=== PATIENT | female | born 1965 | race Caucasian/White ===

== ENCOUNTER → 2018-07-15 15:46 | Outpatient (CLI) | payer BC, SELFPAY ==
[2018-07-15 18:09] LABS: T4 Total, Thyroxin 10.2 ug/dL (4.8-13.9); Thyroid Stim Hormone (TSH) 1.63 uIU/mL (0.358-3.74)
[2018-07-22 15:59] LABS: HPV Reflexed? NOT INDICATED
== END ==
PROVIDERS: Family Provider Family Medicine; PCP Family Medicine; Visit Provider Family Medicine
DX: E03.9 Hypothyroidism, unspecified (principal); Z12.4 Encounter for screening for malignant neoplasm of cervix
CPT/HCPCS: 36415; 84436; 84443; 88175; G0145

== ENCOUNTER → 2019-06-03 14:24 | Outpatient (CLI) | payer BC, SELFPAY ==
[2017-06-27 08:17] VITALS: BMI 26.4
== END ==
PROVIDERS: Family Provider Family Medicine; PCP Family Medicine; Referring Provider Family Medicine; Visit Provider Family Medicine
DX: R19.7 Diarrhea, unspecified (principal)
CPT/HCPCS: 87177; 87209; 87506

== ENCOUNTER 2020-03-08 16:52 | Emergency (ER) | payer BC, SELFPAY ==
[2020-03-08 16:54] VITALS: BP 152/94; PULSE 111; RESP 16; TEMP 36.3; O2SAT 98; BMI 28.3
--- NOTE | 2020-03-08 17:03 | ED.VIS.GEN ---
History of Present Illness Chief Complaint: Upper Extremity Injury Informant: Patient Narrative: 4-year-old female with no past medical history presents with concern for left wrist pain. States that approximate 2 hours ago she was walking into the [email or web address] salon when she tripped on her sandal and fell into the door. Use her left hand to brace her fall. Denies any head trauma or loss of consciousness. Has sharp pain in the left wrist worse with movement. Denies numbness or tingling. Patient is not on anticoagulation. Past Medical History - Allergies and Home Meds Allergies/Adverse Reactions: Allergies No Known Allergies Allergy (Verified 06/27/17 08:23) Primary Care Physician: Erika Pritchard MD [Primary Care Provider] - Prior records reviewed: Yes Past Medical History: - - hypothyroidism Surgical History: no surgical history Lives: Spouse/ Significant Other Smoking Status: Unknown if ever smoked Alcohol: None Drugs: None Review of Systems General: Denies: Chills, Fever, Sweats Eyes: Denies: Visual changes - bilaterally, Diplopia ENT: Denies: Rhinorrhea, Sore throat Cardiovascular: Denies: Chest pain, Palpitations Respiratory: Denies: Dyspnea, Cough, Dyspnea on exertion Gastrointestinal: Denies: Abdominal pain, Nausea, Vomiting, Diarrhea, Melena, Hematochezia Genitourinary: Denies: Dysuria, Hematuria, Frequency Musculoskeletal: Reports: Arthralgias. Denies: Back pain, Extremity Pain Skin: Denies: Rash, Wounds Neurological: Denies: Headache, Weakness, Numbness Physical Exam Vital Signs/Narrative: Vital Signs Temp Pulse Resp BP Pulse Ox 03/08/20 16:54 97.3 F L 111 H 16 152/94 H 98 Inital Vital Signs reviewed: Yes General: Well nourished, Well developed, No Acute Distress Head: Normocephalic, Atraumatic Eyes: Perrl, EOMI ENT: Moist mucous membranes, No rhinorrhea Neck: Supple, Nontender Cardiovascular: Regular rate, Regular rhythm, No murmurs Respiratory: No distress, CTA bilaterally, Chest nontender Abdomen: Soft, Nontender, Nondistended, Normal bowel sounds Back: Nontender, Normal Inspection Extremities: Nontender, No edema, - - TTP in the left wrist over the lateral dorsum. Strong radial pulse. Sensation intact. Skin: Normal color, No rash Neurological: Alert, Oriented x3, Cranial nerves II-XII grossly intact, Normal Strength, Normal Sensation Psychological: Normal affect, Normal Mood Diagnostic/Tx/Re-eval Clinical Impression(s) from Imaging Studies Wrist X-Ray 03/08/20 17:06 IMPRESSION: Intra-articular nondisplaced fracture of the distal radius. Electronically Signed: Mao Lucero MD at 17:17 EDT Tel , Service support , - Medical Decision Making Appears well and nontoxic. No evidence of head injury. Patient has a left intra-articular distal radius fracture without significant displacement. Patient was given one Percocet for her pain. A volar splint was placed with Ortho-Glass. Patient tolerated procedure well. Will follow-up with Dr. Quesada. Asked to return for any new or worsening symptoms. Patient agreeable and discharged home in stable condition. Procedures - Upper Extremity Splints Upper Extremity Splint: Orthoglass, Volar Splint Fabrication: Pre-fabricated Location: Left ED Disposition - Plan for ED Patient: Disposition: Home or Assisted Living Diagnosis: Radius distal fracture, Fall Instructions: ED WRIST FRACTURE General Prescriptions: Oxycodone [Oxyir] 5 mg PO Q6H PRN PRN 2 Days #9 tablet PRN Reason: Pain Score 6-10/10 Transmission Status: Received by [facility]/pharmacy #[id number] Referrals: Erika Pritchard MD [Primary Care Provider] - Arthur Burnett DO [STAFF PHYSICIAN] -
--- NOTE | 2020-03-08 17:06 | RAD_ITS ---
STUDY: X-RAY - LEFT WRIST REASON FOR EXAM: Female, 54 years old. FALL, NOTICEABLE SWELLING ON TOP OF HAND AROUND THUMB TECHNIQUE: 3 view(s) of the wrist were obtained. COMPARISON: None. FINDINGS: Intra-articular nondisplaced fracture of the distal radius. Normal radiocarpal articulation. Normal distal radioulnar articulation. Normal carpal bones. Normal carpal articulations. Normal carpometacarpal articulation of the thumb. Normal second through fifth carpometacarpal articulations. Normal visualized metacarpal bones. Soft tissue swelling. RAD/Wrist min 3 Views IMPRESSION: Intra-articular nondisplaced fracture of the distal radius. Electronically Signed: Mao Lucero MD at 17:17 EDT Tel , Service support ,
[2020-03-08] MEDS: oxyCODONE 5 MG Tablet PO (17:14)
== END 2020-03-08 18:22 | disposition home or self-care (01) ==
PROVIDERS: Emergency Provider Emergency Medicine; PCP Family Medicine
DX: S52.572A Other intraarticular fracture of lower end of left radius, initial encounter for closed fracture (principal); W01.10XA Fall on same level from slipping, tripping and stumbling with subsequent striking against unspecified object, initial encounter; Y93.01 Activity, walking, marching and hiking; Y92.89 Other specified places as the place of occurrence of the external cause; Y99.9 Unspecified external cause status; E03.9 Hypothyroidism, unspecified; Z79.899 Other long term (current) drug therapy
CPT/HCPCS: 29125; 73110; 99283

== ENCOUNTER → 2020-03-15 10:51 | Outpatient (CLI) | payer BC, SELFPAY ==
[2020-03-10 11:52] VITALS: BMI 28.3
--- NOTE | 2020-03-15 10:52 | RAD_ITS ---
STUDY: X-RAY - LEFT WRIST REASON FOR EXAM: Fracture follow-up. TECHNIQUE: 3 view(s) of the wrist were obtained. COMPARISON: Radiographs 03/08/2020. FINDINGS: There is no interval change of the nondisplaced fracture of the distal radius. Normal radiocarpal articulation. Normal distal radioulnar articulation. Normal carpal bones. There is mild joint space narrowing of the triscaphe articulation. Normal carpometacarpal articulation of the thumb. Normal second through fifth carpometacarpal articulations. Normal visualized metacarpal bones. There is an overlying cast. RAD/Wrist min 3 Views IMPRESSION: No interval change of distal radial fracture. Electronically Signed: Nicholas Bermudez MD at 11:26 EDT Tel , Service support ,
== END ==
LOC: HPRAD 10:52
PROVIDERS: PCP Family Medicine; Referring Provider Orthopaedic Surgery; Visit Provider Orthopaedic Surgery
DX: S52.502A Unspecified fracture of the lower end of left radius, initial encounter for closed fracture (principal); X58.XXXA Exposure to other specified factors, initial encounter; Y93.9 Activity, unspecified; Y92.9 Unspecified place or not applicable; Y99.9 Unspecified external cause status
CPT/HCPCS: 73110

== ENCOUNTER → 2020-03-22 09:18 | Outpatient (CLI) | payer BC, SELFPAY ==
[2020-03-15 11:06] VITALS: BMI 28.3
--- NOTE | 2020-03-22 09:19 | RAD_ITS ---
STUDY: X-RAY - LEFT WRIST REASON FOR EXAM: Female, 54 years old. FRACTURE TECHNIQUE: 3 view(s) of the wrist were obtained. COMPARISON: 03/15/2020 FINDINGS: Since the previous study, the fiberglass cast surrounding the distal forearm and wrist has been removed. Previous described osteochondral fracture in the distal radius is unchanged in appearance from the previous study, no significant healing has occurred. Persistent cortical irregularity and fracture lucency noted. Continued follow-up recommended to assure osseous union. Normal visualized distal ulna. Normal radiocarpal articulation. Normal distal radioulnar articulation. Normal carpal bones. Normal carpal articulations. Normal carpometacarpal articulation of the thumb. Normal second through fifth carpometacarpal articulations. Normal visualized metacarpal bones. The soft tissue structures are unremarkable. RAD/Wrist min 3 Views IMPRESSION: Little significant healing has occurred in the previous seen noted osteochondral fracture in the distal radius. Continued follow-up recommended to assure osseous union. Alignment and positioning are unchanged. No new acute fracture or suspicious osseous lesion Electronically Signed: Nik Still MD at 9:47 EDT , Service support ,
== END ==
LOC: HPRAD 09:19
PROVIDERS: PCP Family Medicine; Referring Provider Orthopaedic Surgery; Visit Provider Orthopaedic Surgery
DX: S52.502A Unspecified fracture of the lower end of left radius, initial encounter for closed fracture (principal); X58.XXXA Exposure to other specified factors, initial encounter; Y93.9 Activity, unspecified; Y92.9 Unspecified place or not applicable; Y99.9 Unspecified external cause status
CPT/HCPCS: 73110

== ENCOUNTER → 2020-04-03 10:34 | Outpatient (CLI) | payer BC, SELFPAY ==
[2020-04-03 10:26] VITALS: BMI 28.3
--- NOTE | 2020-04-03 10:35 | RAD_ITS ---
STUDY: X-RAY - LEFT WRIST REASON FOR EXAM: Female, 55 years old. FRACTURE TECHNIQUE: 3 view(s) of the wrist were obtained. COMPARISON: Comparison is made with prior examination dated 03/22/2020. FINDINGS: There is evidence of a healing fracture through the distal radial metaphysis. The alignment is unchanged. Normal radiocarpal articulation. Normal distal radioulnar articulation. Normal carpal bones. Normal carpal articulations. Normal carpometacarpal articulation of the thumb. Normal second through fifth carpometacarpal articulations. Normal visualized metacarpal bones. Soft tissue swelling. RAD/Wrist min 3 Views IMPRESSION: Healing nondisplaced fracture of the distal radial metaphysis with persistent soft tissue swelling. Electronically Signed: Parveen Morelos, at 10:17 EDT , Service support ,
== END ==
LOC: HPRAD 10:35
PROVIDERS: PCP Family Medicine; Referring Provider Orthopaedic Surgery; Visit Provider Orthopaedic Surgery
DX: S52.592D Other fractures of lower end of left radius, subsequent encounter for closed fracture with routine healing (principal); X58.XXXD Exposure to other specified factors, subsequent encounter
CPT/HCPCS: 73110

== ENCOUNTER → 2020-04-17 10:17 | Outpatient (CLI) | payer BC, SELFPAY ==
[2020-04-17 07:49] VITALS: BMI 28.3
--- NOTE | 2020-04-17 10:19 | RAD_ITS ---
STUDY: X-RAY - LEFT WRIST REASON FOR EXAM: Female, 55 years old. F/U LEFT WRIST FX. INJURED ON MARCH 08/2020 TECHNIQUE: 3 view(s) of the wrist were obtained. COMPARISON: 04/03/2020 FINDINGS: Healing nondisplaced transverse fracture the distal metaphysis of the radius with sclerosis and bony bridging. Normal radiocarpal articulation. Normal distal radioulnar articulation. Normal carpal bones. Normal carpal articulations. Normal carpometacarpal articulation of the thumb. Normal second through fifth carpometacarpal articulations. Normal visualized metacarpal bones. The soft tissue structures are unremarkable. RAD/Wrist min 3 Views IMPRESSION: Healing nondisplaced transverse fracture the distal metaphysis of the radius. Electronically Signed: Himanshu Luis MD at 10:32 EDT Tel , Service support ,
== END ==
PROVIDERS: PCP Family Medicine; Referring Provider Orthopaedic Surgery; Visit Provider Orthopaedic Surgery
DX: S52.572D Other intraarticular fracture of lower end of left radius, subsequent encounter for closed fracture with routine healing (principal); X58.XXXD Exposure to other specified factors, subsequent encounter
CPT/HCPCS: 73110

== ENCOUNTER → 2020-09-13 15:09 | Outpatient (CLI) | payer BC, SELFPAY ==
[2020-05-01 09:26] VITALS: BMI 28.3
[2020-09-13 18:16] LABS: Absolute Lymphocyte Count 2.84 X10^3/uL (0.83-4.51); Absolute Neutrophil Count 6.1 X10^3/uL (2.0-7.7); Basophil# 0.08 X10^3/uL; Basophil% 0.8 % (0-1); Eosinophil# 0.12 X10^3/uL; Eosinophils% 1.2 % (0-5); Hematocrit 41.1 % (37-47); Hemoglobin 12.9 g/dL (12.0-15.0); Lymphocyte # 2.84 X10^3/ul (4.0); Lymphocyte % 28.3 % (19-41); Mean Corp Hgb Conc 31.4 g/dL (32-36); Mean Corpuscular Hgb 29.9 pg (27.0-32.0); Mean Corpuscular Volume 95.4 fL (81-99); Mean Platelet Vol. 10.3 fl (6.2-12.0); Monocyte# 0.88 X10^3/uL; Monocyte% 8.8 % (0-10); NRBC Flagged by Analyzer 0 % (0-5); Neutrophil # 6.08 X10^3/uL (2.7-7.7); Neutrophil % 60.6 % (47-70); Platelet Count 308 K/mm3 (150-450); RBC Distribution Width CV 12.8 % (11.6-14.6); RBC Distribution Width SD 45.2 fl (35.1-43.9); Red Blood Count 4.31 M/mm3 (4.2-5.4)
[2020-09-13 18:50] LABS: ALB/GLOB Ratio 1.2 RATIO (0.9-2.4); AST(SGOT) 12 U/L (15-37); Alanine Aminotransfer ALT/SGPT 19 U/L (13-56); Albumin, Serum 3.5 g/dL (3.2-5.0); Alkaline Phosphatase 70 U/L (45-117); Anion Gap 4 (5-15); BUN 12 mg/dL (7-18); BUN/Creat Ratio 16.9 RATIO (10-20); Calcium,Total 8.6 mg/dL (8.5-10.1); Chloride 108 mmol/L (98-107); Creatinine, Serum 0.71 mg/dL (0.55-1.02); EST Glomerular Filtration Rate 91 mL/min (>60); Est Glom Filt Rate - Afr Amer 110 mL/min (>60); Free T3 2.1 pg/mL (2.18-3.98); Glucose 88 mg/dL (74-106); Potassium 4.3 mmol/L (3.5-5.1); Protein, Total 6.5 g/dL (6.4-8.2); Sodium Level 138 mmol/L (136-145); T4 Total, Thyroxin 8.7 ug/dL (4.8-13.9); Thyroid Stim Hormone (TSH) 4.23 uIU/mL (0.358-3.74)
== END ==
PROVIDERS: PCP Family Medicine; Referring Provider Family Medicine; Visit Provider Family Medicine
DX: E03.9 Hypothyroidism, unspecified (principal); R53.81 Other malaise; R53.83 Other fatigue
CPT/HCPCS: 36415; 80053; 84436; 84443; 84481; 85025

== ENCOUNTER → 2020-12-04 15:22 | Outpatient (CLI) | payer BC, SELFPAY ==
[2020-05-01 09:26] VITALS: BMI 28.3
[2020-12-04 18:04] LABS: T4 Total, Thyroxin 10.3 ug/dL (4.8-13.9); Thyroid Stim Hormone (TSH) 0.64 uIU/mL (0.358-3.74)
== END ==
PROVIDERS: PCP Family Medicine; Visit Provider Family Medicine
DX: E03.9 Hypothyroidism, unspecified (principal)
CPT/HCPCS: 36415; 84436; 84443

== ENCOUNTER → 2021-01-22 15:39 | Outpatient (CLI) | payer BC, SELFPAY ==
[2020-05-01 09:26] VITALS: BMI 28.3
[2021-01-22 18:55] LABS: T4 Total, Thyroxin 10.7 ug/dL (4.8-13.9); Thyroid Stim Hormone (TSH) 0.31 uIU/mL (0.358-3.74)
[2021-01-25 17:54] LABS: HPV Reflexed? NOT INDICATED
== END ==
PROVIDERS: PCP Family Medicine; Visit Provider Family Medicine
DX: Z01.419 Encounter for gynecological examination (general) (routine) without abnormal findings (principal); E03.9 Hypothyroidism, unspecified
CPT/HCPCS: 36415; 84436; 84443; 88175; G0145

== ENCOUNTER → 2021-02-28 14:45 | Outpatient (CLI) | payer BC, SELFPAY ==
[2020-05-01 09:26] VITALS: BMI 28.3
--- NOTE | 2021-02-28 14:48 | BI_ITS ---
MAMMOGRAPHY - BILATERAL SCREENING REASON FOR EXAM: Female, 55 years old. Routine annual screening examination. PERTINENT HISTORY: Non-contributory. TECHNIQUE: Digital bilateral breast romario (3D mammographic acquisition) in the CC and MLO projections. 2-D mediolateral oblique (MLO) and craniocaudad (CC) views of both breasts were obtained. CAD: Full Field Digital Mammography with Computer Added Detection was performed. COMPARISON: None. Baseline examination. FINDINGS: Breast Composition: The breasts are heterogeneously dense, which may obscure small masses. There are no dominant masses or suspicious calcifications. There is a 7.1 mm x 8 mm well-defined nodule in the upper outer quadrant of the right breast. Correlation with function is recommended. No other significant abnormalities are identified. BI/SCREENING MAMM (CAD), BILAT IMPRESSION: 7.1 mm x 8 mm well-defined nodule in the upper-outer quadrant of the right breast. Correlation with ultrasound is recommended. ASSESSMENT CATEGORY: BIRADS Category 0: Incomplete. Need additional imaging evaluation. A letter regarding these results will be sent to the patient by the facility within 30 days. Approximately 10% of breast cancers are not detected by mammography. A normal mammogram should not delay biopsy of a clinically suspicious abnormality. [id number] Electronically Signed: Parveen Morelos MD at 15:42 EDT , Service support ,
== END ==
PROVIDERS: PCP Family Medicine; Referring Provider Family Medicine; Visit Provider Family Medicine
DX: Z12.31 Encounter for screening mammogram for malignant neoplasm of breast (principal); N63.11 Unspecified lump in the right breast, upper outer quadrant
CPT/HCPCS: 77067

== ENCOUNTER → 2021-03-02 09:25 | Outpatient (CLI) | payer BC, SELFPAY ==
[2020-05-01 09:26] VITALS: BMI 28.3
--- NOTE | 2021-03-02 09:26 | US_ITS ---
STUDY: ULTRASOUND BREAST - RIGHT REASON FOR EXAM: Female, 55 years old. Abnormal screening mammogram. TECHNIQUE: Axial and longitudinal images of the RIGHT breast were performed with a high resolution ultrasound transducer. # OF IMAGES: 11 COMPARISON: Comparison is made with prior mammogram dated 02/28/2021. FINDINGS: RIGHT Breast: The mammographic abnormality corresponds to an 8 mm x 7 mm x 4 mm cyst at the 10 o''clock position of the breast at 7 cm from the nipple. US/Breast Limited Unilateral IMPRESSION: 8 mm x 7 mm x 4 mm cyst is seen at the 10 o''clock position of the breast at 7 cm from the nipple. ASSESSMENT CATEGORY: BIRADS Category 2: Benign. A letter regarding these results will be sent to the patient by the facility within 30 days. Electronically Signed: Parveen Morelos MD at 10:40 EDT , Service support ,
== END ==
PROVIDERS: PCP Family Medicine; Referring Provider Family Medicine; Visit Provider Family Medicine
DX: R92.8 Other abnormal and inconclusive findings on diagnostic imaging of breast (principal); N60.01 Solitary cyst of right breast
CPT/HCPCS: 76642

== ENCOUNTER → 2022-05-17 | Outpatient (CLI) | payer BC, SELFPAY ==
[2022-05-17 18:13] LABS: Anion Gap 6 (5-15); BUN 15 mg/dL (7-18); BUN/Creat Ratio 21.2 RATIO (10-20); Calcium,Total 9.1 mg/dL (8.5-10.1); Chloride 109 mmol/L (98-107); Cholesterol 208 mg/dL (200); Creatinine, Serum 0.71 mg/dL (0.55-1.02); EST Glomerular Filtration Rate 91 mL/min (>60); Est Glom Filt Rate - Afr Amer 110 mL/min (>60); Glucose 83 mg/dL (74-106); High Density Lipoprotein 44 mg/dL; Potassium 3.9 mmol/L (3.5-5.1); Sodium Level 140 mmol/L (136-145); T4 Total, Thyroxin 10.4 ug/dL (4.8-13.9); Thyroid Stim Hormone (TSH) 0.72 uIU/mL (0.358-3.74); Triglycerides 128 mg/dL; Very Low Density Lipoprotein 26 mg/dL (5-40)
== END | disposition home or self-care (01) ==
LOC: MFPLAB 15:23
PROVIDERS: PCP Family Medicine; Referring Provider Family Medicine; Visit Provider Family Medicine
DX: Z00.00 Encounter for general adult medical examination without abnormal findings (principal); E03.9 Hypothyroidism, unspecified
CPT/HCPCS: 36415; 80048; 80061; 84436; 84443

== ENCOUNTER → 2023-01-07 | Outpatient (CLI) | payer BC, SELFPAY ==
--- NOTE | 2023-01-07 15:48 | RAD_ITS ---
EXAM: XR LEFT HIP WITH PELVIS WHEN PERFORMED, 2 OR 3 VIEWS CLINICAL INDICATION: None provided. pain TECHNIQUE: Two or three views of the left hip with pelvis when performed. COMPARISON: No relevant prior studies available. FINDINGS: BONES/JOINTS: Unremarkable. No displaced fracture. No destructive or sclerotic lesions. Note that overlapping bowel shadows may however obscure fine detail. Sacroiliac joint is unremarkable. No widening of the pubic symphysis. The articular structures are unremarkable. SOFT TISSUES: Unremarkable. No soft tissue swelling or gas. RAD/HIP, UNI W/ Pelvis 2-3 Views IMPRESSION: No evidence of displaced acute pelvic or hip fracture. Small curvilinear ossific density medial to the left femur near the lesser trochanter and another ossific density near the inferior left acetabulum both appear likely chronic. Electronically Signed: Jesica Palencia MD at 9:23 EDT ,
== END | disposition home or self-care (01) ==
LOC: MTRAD 15:47
PROVIDERS: PCP Family Medicine; Referring Provider Family Medicine; Visit Provider Family Medicine
DX: M25.552 Pain in left hip (principal)
CPT/HCPCS: 73502

== ENCOUNTER → 2023-01-23 | Outpatient (CLI) | payer BC, SELFPAY ==
--- NOTE | 2023-01-23 16:37 | MRI_ITS ---
EXAM: MR LEFT LOWER EXTREMITY WITHOUT AND WITH INTRAVENOUS CONTRAST, FEMUR CLINICAL INDICATION: LEFT LEG PAIN, ABNORMAL FINDING ON DIAGNOSTIC IMAGING TECHNIQUE: Multiplanar and multisequence MR images of the left femur without and with intravenous contrast. CONTRAST: 15ML IV CLARISCAN COMPARISON: No relevant prior studies available. FINDINGS: BONES/JOINTS: Unremarkable. No fracture. No joint effusion. No concerning bone marrow signal alterations. MUSCLES: Unremarkable. No edema or myositis. Tendons are unremarkable. OTHER SOFT TISSUES: Left greater than right trochanteric bursitis. OTHER FINDINGS: No adnexal masses or free fluid in the pelvis. MRI/Lower Ext No Joint W/WO Cont IMPRESSION: Left greater than right trochanteric bursitis. Electronically Signed: Brian Rosen MD at 23:00 EDT ,
== END | disposition home or self-care (01) ==
PROVIDERS: PCP Family Medicine; Referring Provider Student in an Organized Health Care Education/Training Program; Visit Provider Student in an Organized Health Care Education/Training Program
DX: M79.605 Pain in left leg (principal); R93.6 Abnormal findings on diagnostic imaging of limbs
CPT/HCPCS: 73720; A9575

== ENCOUNTER → 2023-02-08 | Outpatient (CLI) | payer BC, SELFPAY ==
--- NOTE | 2023-02-08 09:52 | MRI_ITS ---
HISTORY: Radiculopathy, pain in left hip, knee, and leg. TECHNIQUE: Multiplanar and multisequence MR images of the lumbar spine were obtained without intravenous contrast. 120 images. COMPARISON: None. FINDINGS: VERTEBRAE: Mild chronic loss of height of the T11 vertebral body with small Schmorl''s nodes. Degenerative bone marrow endplate changes at multiple levels particularly L1-2. ALIGNMENT: 2 mm retrolisthesis of L1-2. CONUS: Normal morphology and position of the conus medullaris at T12/L1. INTERVERTEBRAL DISCS: T12-L1: No significant posterior disc protrusion, central canal stenosis, or foraminal narrowing based on the sagittal images. L1-2: Moderate posterior disc bulge osteophyte complex with facet arthropathy resulting in mild central canal stenosis and bilateral foraminal narrowing L2-3: Mild posterior disc bulge osteophyte complex with facet arthropathy resulting in minimal narrowing of the thecal sac and mild bilateral foraminal narrowing. L3-4, L4-5: Minimal disc bulges and facet arthropathy without significant central canal stenosis or foraminal narrowing. L5-S1: Mild posterior disc protrusion with facet arthropathy resulting in minimal narrowing of the thecal sac and mild left foraminal narrowing. SOFT TISSUES: Mild posterior subcutaneous cutaneous edema. MRI/Spine Lumbar (Routine) IMPRESSION: Mild degenerative disc disease of the lumbar spine as above. Electronically Signed: Catherine Connolly MD at 12:17 EDT ,
== END | disposition home or self-care (01) ==
LOC: MRI 09:28
PROVIDERS: PCP Family Medicine; Referring Provider Student in an Organized Health Care Education/Training Program; Visit Provider Student in an Organized Health Care Education/Training Program
DX: M54.16 Radiculopathy, lumbar region (principal)
CPT/HCPCS: 72148

== ENCOUNTER → 2023-04-21 | Outpatient (CLI) | payer BC, SELFPAY ==
[2023-04-21 21:10] LABS: Hepatitis B Surface Antibody Non-Reactive
[2023-04-23 08:12] LABS: HEPATITIS B SURFACE AG Negative (Negative); Hep C Antibodies Non Reactive (Non Reactive); Hepatitis A AB, Total Negative (Negative); Hepatitis A IgM Antibody Negative (Negative); Hepatitis B Core AB IgM Negative (Negative)
== END | disposition home or self-care (01) ==
PROVIDERS: PCP Family Medicine; Referring Provider Physician Assistant; Visit Provider Physician Assistant
DX: L30.9 Dermatitis, unspecified (principal); F17.200 Nicotine dependence, unspecified, uncomplicated
CPT/HCPCS: 36415; 80074; 86706; 86708

== ENCOUNTER 2023-06-27 15:56 | Outpatient (CLI) | payer BC, SELFPAY ==
[2023-06-27 18:12] LABS: T4 Total, Thyroxin 9.7 ug/dL (4.8-13.9); Thyroid Stim Hormone (TSH) 1.49 uIU/mL (0.358-3.74)
== END 2023-06-27 23:59 | disposition home or self-care (01) ==
LOC: MFPLAB 15:57
PROVIDERS: PCP Family Medicine; Visit Provider Family Medicine
DX: Z00.00 Encounter for general adult medical examination without abnormal findings (principal)
CPT/HCPCS: 36415; 84436; 84443

== ENCOUNTER 2023-06-28 17:18 | Emergency (ER) | payer BC, SELFPAY ==
[2023-06-28 17:19] VITALS: BP 192/94; PULSE 75; RESP 14; TEMP 36.2; O2SAT 100; BMI 28.3
--- NOTE | 2023-06-28 17:31 | CT_ITS ---
INDICATION: headache, htn EXAMINATION: CT BRAIN - CT Head or Brain W/O Contrast Injection TECHNIQUE: Multiple axial images were obtained of the head without intravenous contrast. A radiation dose optimization technique was used for this scan. IV Contrast dosage and agent: None. COMPARISON: None FINDINGS: BRAIN PARENCHYMA: No intra- or extra-axial hemorrhage. No evidence of acute infarct. No intracranial mass or mass effect. There is preservation of the [place]/white matter interface. Posterior fossa structures are unremarkable. CSF SPACES: Appropriate for age. No hydrocephalus. Basal cisterns are patent. CALVARIUM, SKULL BASE, PARANASAL SINUSES AND MASTOID AIR CELLS: Mild frontal sinus mucosal thickening. No discrete lytic or blastic abnormalities. ORBITS: Both globes, extraocular muscles, optic nerves and retrobulbar fat appear unremarkable. CT/Brain/Head without Contrast IMPRESSION: No acute intracranial hemorrhage or fracture. Electronically Signed: Miki Sahu MD at 18:22 EDT ,
--- NOTE | 2023-06-28 17:31 | EX.ED.DYSGE1 ---
HPI History of Present Illness Chief Complaint: Hypertension Detail of Chief Complaint: Hypotension, headache Informant: patient Narrative Narrative: Patient presents to the emergency department with complaint of elevated blood pressure. Patient states that she had a general checkup with her primary care physician yesterday and had blood pressures of 160/100. No medication was started. Patient also describes headaches for about 2 weeks. Patient also for the last 3 days has been having some burning sensation in her chest. She denies recent illness. Patient denies shortness of breath. Denies any new medications. She has history of hypothyroidism. [facility] Medical History (Updated 06/28/23 @ 19:[address] Sheron Rosales DO) history of leg surgery Hypothyroidism Home Medications levothyroxine 50 mcg tablet 50 mcg PO DAILY 06/27/17 [History Last Taken Unknown] ascorbic acid (vitamin C) 500 mg capsule mg PO 05/01/20 [History Last Taken Unknown] lisinopril 10 mg tablet 10 mg PO DAILY #30 tabs 06/28/23 [Rx Last Taken Unknown] Allergy/AdvReac Type Severity Reaction Status Date / Time No Known Allergies Allergy Verified 06/28/23 17:21 Social History (Updated 05/01/20 @ 10:[address] Arthur Burnett DO) Smoking Status: Current every day smoker tobacco type: cigarettes alcohol intake: current details: Social drinker ROS ROS ED Review of Systems ROS Unobtainable: other Constitutional Constitutional ED: Reports lethargy; Denies chills, fever(s), sweats or weight loss Eyes Eyes: Denies blurry vision, change in vision or diplopia ENT ENT ED: Denies rhinorrhea or sore throat Cardiovascular Cardiovascular: Reports chest pain; Denies orthopnea or racing heartbeat Respiratory/Chest Respiratory/Chest: Denies cough, dyspnea, dyspnea on exertion, orthopnea or sputum Gastrointestinal Gastrointestinal: Denies abdominal pain, diarrhea, nausea or vomiting Genitourinary Genitourinary ED: Denies dysuria, hematuria or urinary frequency Musculoskeletal Musculoskeletal: Denies arthralgias, back pain, myalgias or neck pain Integumentary Denies abscess, Abrasions or rash Neurologic Neurologic: Reports headache(s); Denies weakness Psychiatric Psychiatric: Denies anxiety, depression or suicidal thoughts Endocrine Endocrinology: Denies polydipsia, polyphagia or polyuria Hematologic/Lymphatic Hematologic/Lymphatic: Denies easy bleeding, easy bruising or lymphadenopathy Allergic/Immunologic Allergic/Immunologic ED: Denies mouth swelling, tongue swelling or urticaria EXAM Physical Exam Const Vital Signs: 06/28/23 17:19 06/28/23 17:28 06/28/23 18:47 Temperature 97.2 F L Temperature Source Temporal Pulse Rate 75 78 Respiratory Rate 14 18 Respiratory Effort Normal Non-Labored Blood Pressure 192/94 H 135/89 H Blood Pressure Mean 126 104 Pulse Ox 100 98 Oxygen Delivery Method Room Air Room Air Positive well nourished and well developed General Appearance ED: well developed and NAD HEENT Reports TM's clear and moist mucous membranes normocephalic and atraumatic; Negative for trauma or tenderness Tympanic Membrane ED: Yes TM's clear Eyes PERRL and EOMs intact bilaterally General Eye ED: Negative for pale conjunctiva or scleral icterus Neck no lymphadenopathy, supple and no JVD General: Negative for tenderness Chest Wall inspection of chest normal and palpation of chest normal Chest: Negative for tenderness Resp normal respiratory effort and clear to auscultation bilaterally Effort and Inspection: Negative for respiratory distress or pain with movement Auscultation: Negative for rhonchi, wheezes or diminished lung sounds Cardio regular rate, regular rhythm, S1 normal heart sound, S2 normal heart sound and no murmurs Peripheral Pulses: pulses 2+ throughout GI normal to inspection, nondistended, normoactive bowel sounds, soft to palpation, non-tender, non-distended and no masses Back/Spine no CVA tenderness and no thoracic nor lumbar tenderness Extremity normal to inspection General Extremety ED: Negative for edema General Extremity: Negative for edema Neuro oriented x3, CN's II-XII intact bilaterally, no sensory deficits noted and gait normal Sensorium / Orientation: awake, alert, oriented to person, oriented to place and oriented to time Motor Exam: strength 5/5 throughout and strength abnormal Psych mental status grossly normal Skin no rashes or lesions noted and no wounds MDM MDM MDM Narrative Medical decision making narrative: Patient presents with elevated blood pressures. Patient initially noted elevated BPs in primary care physician's office yesterday. Has had headaches for about 3 weeks. She has had some burning in her chest that she thought maybe was heartburn. Patient has history of hypothyroidism. Patient not on blood pressure medications. I will establish on arrival. EKG obtained showed a sinus rhythm with a rate of 70 bpm with no acute ST segment changes. CBC with differential was normal. Chemistries normal. Troponin normal. Urine was normal. CT scan of the brain without contrast was unremarkable. Patient was given hydralazine 10 mg in the emergency department and her blood pressure improved and to the 130s to 150 systolic down to the 80s diastolic. I discussed case with Dr. Castillo who is on-call for Dr. Pritchard who recommended that we start patient on lisinopril and have her follow-up with the office this week. Patient comfortable with plan. She was started on lisinopril 10 mg daily. Patient advised to return if lip or tongue swelling, difficulty breathing, or condition worsening way. Lab Data Attestation: I reviewed the patient's lab results. Labs: Laboratory Results - last 24 hr 06/28/23 06/28/23 17:38 17:55 WBC 8.9 RBC 4.70 Hgb 14.2 Hct 44.3 MCV 94.3 MCH 30.2 MCHC 32.1 RDW Std Deviation 42.3 RDW Coeff of Henrry 12.1 Plt Count 298 MPV 9.8 Immature Gran % (Auto) 0.200 Neut % (Auto) 50.6 Lymph % (Auto) 36.6 [place] % (Auto) 9.9 Eos % (Auto) 2.0 Baso % (Auto) 0.7 Absolute Neuts (auto) 4.5 Absolute Lymphs (auto) 3.27 Nucleated RBC % 0 Sodium 141 Potassium 3.8 Chloride 108 H Carbon Dioxide 27.0 Anion Gap 6 BUN 16 Creatinine 0.79 Estim Creat Clear Calc 64.99 Est GFR (MDRD) Af Amer 97 Est GFR (MDRD) Non-Af 80 BUN/Creatinine Ratio 20.3 H Glucose 112 H Calcium 8.9 Troponin I High Sens 7 Urine Color Yellow Urine Clarity Clear Urine pH 6.0 Ur Specific [place] 1.015 Urine Protein Negative Urine Glucose (UA) Normal Urine Ketones Negative Urine Occult Blood Negative Urine Nitrite Negative Urine Bilirubin Negative Urine Urobilinogen Normal Ur Leukocyte Esterase 25 H Urine RBC 0 SEEN Urine WBC 0-5 SEEN Ur Squamous Epith Cells 5-10 SEEN Urine Bacteria 0 SEEN Urine Mucus 0 SEEN Radiography Diagnostic Testing: Clinical Impression(s) from Imaging Studies Brain CT 06/28/23 17:31 IMPRESSION: No acute intracranial hemorrhage or fracture. Electronically Signed: Miki Sahu MD at 18:22 EDT , EKG Initial EKG: Attestation: I personally reviewed and interpreted this EKG as follows: Comments: Sinus rhythm with a rate of 78 bpm with no acute ST segment changes Discharge Plan Triage Chief Complaint: Hypertension ED Provider: Sheron Rosales Dx/Rx/DC Orders Clinical Impression: Hypertension Instructions: ED Hypertension New Begin Treatment Prescriptions: New lisinopril 10 mg tablet 10 mg PO DAILY Qty: 30 0RF No Action ascorbic acid (vitamin C) 500 mg capsule PO levothyroxine 50 MCG tablet 50 mcg PO DAILY Primary Care Provider: Erika Pritchard Referrals: Erika Pritchard MD [Primary Care Provider] - 3-5 Days Disposition Disposition: Home, Self Care
[2023-06-28 17:54] LABS: Absolute Lymphocyte Count 3.27 X10^3/uL (0.83-4.51); Absolute Neutrophil Count 4.5 X10^3/uL (2.0-7.7); Basophil# 0.06 X10^3/uL; Basophil% 0.7 % (0-1); Eosinophil# 0.18 X10^3/uL; Hematocrit 44.3 % (37-47); Hemoglobin 14.2 g/dL (12.0-15.0); Lymphocyte # 3.27 X10^3/ul (0.83-4.51); Lymphocyte % 36.6 % (19-41); Mean Corp Hgb Conc 32.1 g/dL (32-36); Mean Corpuscular Hgb 30.2 pg (27.0-32.0); Mean Corpuscular Volume 94.3 fL (81-99); Mean Platelet Vol. 9.8 fl (6.2-12.0); Monocyte# 0.88 X10^3/uL; Monocyte% 9.9 % (0-10); NRBC Flagged by Analyzer 0 % (0-5); Neutrophil # 4.52 X10^3/uL (2.7-7.7); Neutrophil % 50.6 % (47-70); Platelet Count 298 K/mm3 (150-450); RBC Distribution Width CV 12.1 % (11.6-14.6); RBC Distribution Width SD 42.3 fl (35.1-43.9); White Blood Count 8.9 K/mm3 (4.4-11.0)
[2023-06-28 18:02] LABS: Bacteria 0 SEEN /hpf (None Seen); Mucous, Urine 0 SEEN /hpf (<or=2+); Red Blood Cells-Urine 0 SEEN /hpf (0-5)
[2023-06-28 18:03] LABS: Color, Urine Yellow (Yellow); Glucose, Dipstick Normal (Normal); Ketone-Dipstick Negative (Negative); Leukocyte Esterase-Dipstick 25 /ul (Negative); Nitrite-Dipstick Negative (Negative); Occult Blood-Urine Negative /ul (Negative); Protein-Dipstick Negative (Negative); Specific Gravity, Urine 1.015 (1.002-1.030); Urine Bilirubin Dipstick Negative (Negative); Urine Clarity Clear (Clear); Urine Urobilinogen Normal (Normal)
[2023-06-28 18:10] LABS: Squamous Epithelial Cells - UA 5-10 SEEN /hpf (5-10); White Blood Cells 0-5 SEEN /hpf (0-5)
[2023-06-28 18:11] LABS: Anion Gap 6 (5-15); BUN 16 mg/dL (7-18); BUN/Creat Ratio 20.3 RATIO (10-20); Calcium,Total 8.9 mg/dL (8.5-10.1); Chloride 108 mmol/L (98-107); Creatinine, Serum 0.79 mg/dL (0.55-1.02); EST Glomerular Filtration Rate 80 mL/min (>60); Est Glom Filt Rate - Afr Amer 97 mL/min (>60); Estimated Creatinine Clearance 64.99 ml/min; Glucose 112 mg/dL (74-106); Potassium 3.8 mmol/L (3.5-5.1); Sodium Level 141 mmol/L (136-145); Troponin-I HS 7 pg/mL (3.0-54.0)
[2023-06-28] MEDS: hydrALAZINE 20 MG/ML Vial 10 MG IV (18:27)
[2023-06-28 18:47] VITALS: BP 135/89; PULSE 78; RESP 18; O2SAT 98
[2023-06-28 19:33] VITALS: BP 150/87; PULSE 88; RESP 16; O2SAT 99
== END 2023-06-28 19:58 | disposition home or self-care (01) ==
PROVIDERS: Emergency Provider Emergency Medicine; PCP Family Medicine; Visit Provider Emergency Medicine
DX: I10 Essential (primary) hypertension (principal); F17.210 Nicotine dependence, cigarettes, uncomplicated; E03.9 Hypothyroidism, unspecified; R07.9 Chest pain, unspecified
CPT/HCPCS: 70450; 80048; 81001; 84484; 85025; 93005; 96374; 99284; A4216

== ENCOUNTER → 2023-08-04 | Outpatient (CLI) | payer BC, SELFPAY ==
--- NOTE | 2023-08-04 14:46 | BI_ITS ---
MAMMOGRAPHY - BILATERAL SCREENING REASON FOR EXAM: Female, 58 years old. Routine annual screening examination. PERTINENT HISTORY: Non-contributory. TECHNIQUE: Digital bilateral breast quinten (3D mammographic acquisition) in the CC and MLO projections. 2-D mediolateral oblique (MLO) and craniocaudad (CC) views of both breasts were obtained. CAD: Full Field Digital Mammography with Computer Added Detection was performed. COMPARISON: Comparison is made with prior study dated February 28, 2021. FINDINGS: Breast Composition: The breasts are heterogeneously dense, which may obscure small masses. There are no dominant masses or suspicious calcifications. No other significant abnormalities are identified. There has been no significant change since the prior study. BI/SCRN MAMM (CAD)W/QUINTEN BILAT IMPRESSION: Stable bilateral screening mammogram. Yearly follow-up mammogram recommended. (A) ASSESSMENT CATEGORY: BIRADS Category 1: Negative. A letter regarding these results will be sent to the patient by the facility within 30 days. Approximately 10% of breast cancers are not detected by mammography. A normal mammogram should not delay biopsy of a clinically suspicious abnormality. [id number] Electronically Signed: Parveen Morelos MD at 15:36 EST ,
== END | disposition home or self-care (01) ==
LOC: OPBI 14:43
PROVIDERS: PCP Family Medicine; Referring Provider Nurse Practitioner Family; Visit Provider Nurse Practitioner Family
DX: Z12.31 Encounter for screening mammogram for malignant neoplasm of breast (principal)
CPT/HCPCS: 77063; 77067

== ENCOUNTER 2024-05-31 09:28 | Emergency (ER) | payer BC, SELFPAY ==
[2024-05-31] VITALS (8 sets, daily range): BP systolic 122–155; BP diastolic 63–90; PULSE 67–86; RESP 16–23; TEMP 36.7–36.8; O2SAT 94–98; BMI 26.9
--- NOTE | 2024-05-31 09:48 | EKG12_ITS ---
Test Reason : Blood Pressure : / mmHG Vent. Rate : 080 BPM Atrial Rate : 080 BPM P-R Int : 160 ms QRS Dur : 068 ms QT Int : 356 ms P-R-T Axes : 053 009 060 degrees QTc Int : 410 ms Normal sinus rhythm Normal ECG Confirmed by WM ALFONSO, JESS ([id number]), supervising editor news reel JOSELYN FINLEY ([id number]) on 06/01/2024 8:44:14 AM Referred By: ARABELLA Confirmed By:JESS BURK MD
[2024-05-31 09:59] LABS: Absolute Lymphocyte Count 3.06 X10^3/uL (0.83-4.51); Absolute Neutrophil Count 6.3 X10^3/uL (2.0-7.7); Basophil# 0.12 X10^3/uL; Basophil% 1.1 % (0-1); Eosinophil# 0.16 X10^3/uL; Eosinophils% 1.5 % (0-5); Hematocrit 43.5 % (37-47); Hemoglobin 14.1 g/dL (12.0-15.0); Lymphocyte # 3.06 X10^3/ul (0.83-4.51); Lymphocyte % 28.9 % (19-41); Mean Corp Hgb Conc 32.4 g/dL (32-36); Mean Corpuscular Hgb 29.8 pg (27.0-32.0); Mean Platelet Vol. 9.7 fl (6.2-12.0); Monocyte% 8.5 % (0-10); NRBC Flagged by Analyzer 0 % (0-5); Neutrophil # 6.32 X10^3/uL (2.7-7.7); Neutrophil % 59.8 % (47-70); Platelet Count 334 K/mm3 (150-450); RBC Distribution Width CV 12.7 % (11.6-14.6); RBC Distribution Width SD 42.9 fl (35.1-43.9); Red Blood Count 4.73 M/mm3 (4.2-5.4); White Blood Count 10.6 K/mm3 (4.4-11.0)
--- NOTE | 2024-05-31 10:07 | RAD_ITS ---
HISTORY: chest pain. TECHNIQUE: XR Chest 2 Views. COMPARISON: 06/27/2017. FINDINGS: CARDIOMEDIASTINAL BORDERS: Cardiac silhouette within normal limits in size. Mediastinal contour also unchanged with calcification of the aortic knob. LUNGS: Radiographically clear. PLEURA: No pleural effusion or pneumothorax seen. OSSEOUS STRUCTURES: Mild degenerative change. RAD/Chest PA and Lateral IMPRESSION: No acute cardiopulmonary process identified. Electronically Signed: Catherine Connolly MD at 10:16 EDT ,
--- NOTE | 2024-05-31 10:13 | EDS_ITS ---
HPI History of Present Illness Chief Complaint: Chest Pain Narrative Narrative: Patient is a 59-year-old female past medical history hypothyroidism, hypertension who presented to the emergency department chief complaint of chest pain. Patient states that her chest pain started on Friday and notes that her chest pain is constant and nothing makes this better or worse. She states that she gets up and ambulates her pain has not worsened and she states that if she rests her pain does not get better. Patient that she has been getting lightheaded as well with her chest pain. The triage note says she is dizzy but she on my exam denies this and states that this is more lightheadedness than dizziness. Patient states that today her chest pain of radiated to her back and her left arm which prompted her to come here for further evaluation management. Denies any recent sick contacts. Denies any history of blood clots or travel history [facility] Medical History Hypothyroidism history of leg surgery Home Medications ?Medication ?Instructions ?Recorded ?Last Taken ?Type ascorbic acid (vitamin C) 500 mg mg PO 05/01/20 Unknown History capsule lisinopril 10 mg tablet 10 mg PO DAILY #30 tabs 06/28/23 Unknown Rx hydrochlorothiazide 25 mg tablet 25 mg PO DAILY 05/31/24 Unknown History levothyroxine 100 mcg tablet 100 mcg PO DAILY 05/31/24 Unknown History pramipexole 0.125 mg tablet 0.125 mg PO DAILY 05/31/24 Unknown History Allergy/AdvReac Type Severity Reaction Status Date / Time No Known Allergies Allergy Verified 05/31/24 09:29 Social History Smoking Status: Current every day smoker tobacco type: cigarettes alcohol intake: current details: Social drinker ROS ROS ED ROS Narrative Constitutional: Complains of lightheadedness as noted above denies any fevers, chills, headaches, dizziness Eyes: Denies changes double vision blurry vision Cardiovascular: Complains of chest pain as noted above denies palpitations Respiratory: Denies coughing wheezing shortness of breath Abdomen: Denies abdominal pain nausea vomit diarrhea : Denies painful urination, hematuria, polyuria Neurological: Denies numbness, weakness, tingling Musculoskeletal: complains of back pain as noted above Skin: Denies rashes or lesions EXAM Physical Exam Narrative Exam Narrative: General: Patient lying in bed rest comfortably did not appear to be in acute distress Head: Atraumatic, normocephalic Eyes: PERRL bilateral, EOMI bilateral, no conjunctival injection noted Neck: Soft, supple, trachea midline Cardiovascular: Regular rate and rhythm no murmurs gallops rubs noted Respiratory: Clear to auscultation bilaterally no rales rhonchi or wheezes noted Abdomen: Soft, nondistended, nontender to palpation, bowel sounds present x 4 Extremities: +5/5 strength noted in the bilateral upper and lower extremities, no pedal edema on exam Neurological: Patient following commands knew that she is at [facility] year is 2023 Skin: Warm, dry, intact Const Vital Signs: 05/31/24 09:29 05/31/24 10:04 05/31/24 10:29 Temperature 98.1 F Temperature Source Oral Pulse Rate 86 67 Respiratory Rate 18 16 Respiratory Effort Normal Non-Labored Blood Pressure 155/90 H 122/84 H Blood Pressure Mean 111 96 Pulse Ox 98 95 Oxygen Delivery Method Room Air Room Air 05/31/24 10:36 05/31/24 11:32 05/31/24 12:00 Temperature Temperature Source Pulse Rate 75 74 Respiratory Rate 23 H 16 Respiratory Effort Blood Pressure 141/63 H 147/83 H Blood Pressure Mean 89 104 Pulse Ox 94 96 96 Oxygen Delivery Method Room Air Room Air Room Air 05/31/24 13:00 Temperature Temperature Source Pulse Rate 80 Respiratory Rate 16 Respiratory Effort Blood Pressure 135/90 H Blood Pressure Mean 105 Pulse Ox Oxygen Delivery Method MDM MDM MDM Narrative Medical decision making narrative: Patient is a 59-year-old female who presents to the emergency department chief complaint of chest pain. Patient will have a workup performed on the diff erential diagnose includes but not limited to ACS, pneumonia, AAA/aortic dissection. Once workup is obtained reviewed she will be reevaluated. Patient be given IV fluids. Bedside ultrasound was performed and showed no pericardial effusion ejection fraction appears to be normal grossly. Patient CBC reviewed and was largely unremarkable no evidence leukocytosis white blood count normal at 10.6, hemoglobin stable 14.1, platelet count normal at 334, sodium normal 139, potassium was 3.3, creatinine normal at 0.84. Patient troponin normal at 5 with a delta troponin obtained normal at 6. EKG in dependently interpreted by myself was reviewed and showed sinus rhythm with a rate of 80 bpm. Patient's proBNP normal at 15.3, TSH normal at 1.57. Patient's x-ray of her chest reviewed and showed no acute cardiopulmonary processes identified. On reevaluation of the patient and she is feeling better. Patient would like to go home at this point in time. At this point in time do feel that this is less likely cardiac in nature as her symptoms have been persistent since Friday and nothing makes this pain better or worse. Patient's heart score was noted to be 2 indicating low risk. Patient's revised Mono score was noted to be low risk as well therefore feel PE is less likely. Advised the patient to follow-up with her primary care physician outpatient setting and return with worsening symptoms or any other concerns. She is agreeable this plan as well as her significant other at bedside all question concerns answered she was discharged home in stable condition. Lab Data Labs: Laboratory Results - last 24 hr 05/31/24 05/31/24 09:45 12:45 WBC 10.6 RBC 4.73 Hgb 14.1 Hct 43.5 MCV 92.0 MCH 29.8 MCHC 32.4 RDW Std Deviation 42.9 RDW Coeff of Henrry 12.7 Plt Count 334 MPV 9.7 Immature Gran % (Auto) 0.200 Neut % (Auto) 59.8 Lymph % (Auto) 28.9 [place] % (Auto) 8.5 Eos % (Auto) 1.5 Baso % (Auto) 1.1 H Absolute Neuts (auto) 6.3 Absolute Lymphs (auto) 3.06 Nucleated RBC % 0 Sodium 139 Potassium 3.3 L Chloride 104 Carbon Dioxide 26.0 Anion Gap 9 BUN 16 Creatinine 0.84 Estim Creat Clear Calc 68.02 Est GFR (MDRD) Af Amer 89 Est GFR (MDRD) Non-Af 74 BUN/Creatinine Ratio 19.0 Glucose 121 H Calcium 9.4 Magnesium 2.1 Troponin I High Sens 5 6 B-Natriuretic Peptide 15.3 TSH 1.570 Radiography Diagnostic Testing: Clinical Impression(s) from Imaging Studies Chest X-Ray 05/31/24 10:07 IMPRESSION: No acute cardiopulmonary process identified. Electronically Signed: Catherine Connolly MD at 10:16 EDT Reading Location ID and State: [facility] / [place] Tel , Service support , Discharge Plan Triage Chief Complaint: Chest Pain ED Provider: Alejandro Adamson Dx/Rx/DC Orders Clinical Impression: Chest pain Instructions: ED Chest Pain, Uncertain Cause Prescriptions: No Action ascorbic acid (vitamin C) 500 mg capsule PO lisinopril 10 mg tablet 10 mg PO DAILY Qty: 30 0RF levothyroxine 100 mcg tablet 100 mcg PO DAILY pramipexole 0.125 mg tablet 0.125 mg PO DAILY hydrochlorothiazide 25 mg tablet 25 mg PO DAILY Primary Care Provider: Jaelyn Rhodes Referrals: Erika Pritchard MD [Med Staff - [employer] [place]] - Activity Restrictions/Additional Instructions: Follow with your primary care physician outpatient setting. Return with worsening symptoms or other concerns. Print Language: Dutch Disposition Disposition: Home, Self Care
[2024-05-31 10:17] LABS: BNP,B-Type NATRIURETIC PEPTIDE 15.3 pg/mL (0-100)
[2024-05-31 10:22] LABS: Anion Gap 9 (5-15); BUN 16 mg/dL (7-18); Calcium,Total 9.4 mg/dL (8.5-10.1); Chloride 104 mmol/L (98-107); Creatinine, Serum 0.84 mg/dL (0.55-1.02); EST Glomerular Filtration Rate 74 mL/min (>60); Est Glom Filt Rate - Afr Amer 89 mL/min (>60); Estimated Creatinine Clearance 68.02 ml/min; Glucose 121 mg/dL (74-106); Magnesium 2.1 mg/dL (1.6-2.6); Potassium 3.3 mmol/L (3.5-5.1); Sodium Level 139 mmol/L (136-145); Troponin-I HS (w/2H Reflex) 5 pg/mL (3.0-54.0)
[2024-05-31] MEDS: 0.9% Normal Saline (1000mL) 1,000 ML 999 ML IV (10:34)
[2024-05-31 11:56] LABS: Reflex Troponin-HS? (from REC) Y
[2024-05-31 13:07] LABS: Troponin-I HS 6 pg/mL (3.0-54.0)
== END 2024-05-31 14:03 | disposition home or self-care (01) ==
PROVIDERS: Emergency Provider Emergency Medicine; PCP Nurse Practitioner Family; Visit Provider Emergency Medicine
DX: R07.9 Chest pain, unspecified (principal); I10 Essential (primary) hypertension; E03.9 Hypothyroidism, unspecified; F17.210 Nicotine dependence, cigarettes, uncomplicated; Z79.890 Hormone replacement therapy; Z79.899 Other long term (current) drug therapy
CPT/HCPCS: 71046; 80048; 83735; 83880; 84443; 84484; 85025; 93005; 96360; 96361; 99284; J7030; A4216

== ENCOUNTER → 2024-06-04 | Outpatient (CLI) | payer BC, SELFPAY ==
[2024-06-04 12:00] LABS: Absolute Lymphocyte Count 2.16 X10^3/uL (0.83-4.51); Absolute Neutrophil Count 4.8 X10^3/uL (2.0-7.7); Basophil# 0.07 X10^3/uL; Basophil% 0.9 % (0-1); Eosinophil# 0.12 X10^3/uL; Eosinophils% 1.5 % (0-5); Hematocrit 42.3 % (37-47); Hemoglobin 13.9 g/dL (12.0-15.0); Lymphocyte # 2.16 X10^3/ul (0.83-4.51); Lymphocyte % 27.3 % (19-41); Mean Corp Hgb Conc 32.9 g/dL (32-36); Mean Corpuscular Volume 91.2 fL (81-99); Mean Platelet Vol. 10.2 fl (6.2-12.0); Monocyte% 10.1 % (0-10); NRBC Flagged by Analyzer 0 % (0-5); Neutrophil # 4.76 X10^3/uL (2.7-7.7); Neutrophil % 60.1 % (47-70); Platelet Count 306 K/mm3 (150-450); RBC Distribution Width CV 12.8 % (11.6-14.6); RBC Distribution Width SD 42.5 fl (35.1-43.9); Red Blood Count 4.64 M/mm3 (4.2-5.4); White Blood Count 7.9 K/mm3 (4.4-11.0)
[2024-06-04 12:41] LABS: D-Dimer Quantitative (DVT/PE) 0.31 FEU/ug/m (0.27-0.49)
== END | disposition home or self-care (01) ==
LOC: BFHLAB 10:13
PROVIDERS: PCP Nurse Practitioner Family; Visit Provider Nurse Practitioner Family
DX: R07.9 Chest pain, unspecified (principal)
CPT/HCPCS: 36415; 85025; 85379

== ENCOUNTER → 2024-06-25 | Outpatient (CLI) | payer BC, SELFPAY ==
--- NOTE | 2024-06-25 07:34 | MRI_ITS ---
EXAM: MR HEAD WITHOUT INTRAVENOUS CONTRAST CLINICAL INDICATION: RULE OUT TIA/CVA TECHNIQUE: Multiplanar and multisequence MR images of the brain were obtained without intravenous contrast. COMPARISON: Head CT June 28, 2023. FINDINGS: BRAIN AND EXTRA-AXIAL SPACES: Unremarkable. No intra- or extra-axial hemorrhage. No evidence of acute infarct. No intracranial mass or mass effect. There is preservation of the [place]/white matter interface. Posterior fossa structures are unremarkable. Ventricles are appropriate for age. No hydrocephalus. Basal cisterns are patent. SELLA: Unremarkable. Normal sella turcica, pituitary gland, infundibular stalk, optic chiasm and hypothalamus. AUDITORY SYSTEM: Unremarkable. The internal auditory canals are patent. BONES/JOINTS: Unremarkable. No discrete lytic or blastic abnormalities. SINUSES: Unremarkable as visualized. Clear. MASTOID AIR CELLS: Unremarkable as visualized. Clear. ORBITS: Unremarkable as visualized. Both globes, extraocular muscles, optic nerves and retrobulbar fat appear unremarkable. VASCULATURE: Unremarkable as visualized. Normal flow voids in the major intracranial circulation. MRI/Brain without Contrast IMPRESSION: Negative MRI brain without intravenous contrast. Electronically Signed: Jesica Palencia MD at 1:20 EDT ,
== END | disposition home or self-care (01) ==
PROVIDERS: PCP Nurse Practitioner Family; Referring Provider Nurse Practitioner Family; Visit Provider Nurse Practitioner Family
DX: G81.94 Hemiplegia, unspecified affecting left nondominant side (principal); R20.0 Anesthesia of skin
CPT/HCPCS: 70551

== ENCOUNTER → 2025-01-05 | Outpatient (CLI) | payer BC, SELFPAY ==
[2025-01-05 15:31] LABS: Absolute Neutrophil Count 5.9 X10^3/uL (2.0-7.7); Eosinophil# 0.22 X10^3/uL; Eosinophils% 2.2 % (0-5); Hematocrit 41.7 % (37-47); Mean Corp Hgb Conc 33.6 g/dL (32-36); Mean Corpuscular Hgb 30.4 pg (27.0-32.0); Mean Corpuscular Volume 90.5 fL (81-99); Mean Platelet Vol. 10.4 fl (6.2-12.0); Monocyte# 1.13 X10^3/uL; Monocyte% 11.3 % (0-10); NRBC Flagged by Analyzer 0 % (0-5); Neutrophil # 5.91 X10^3/uL (2.7-7.7); Neutrophil % 59.2 % (47-70); Platelet Count 360 K/mm3 (150-450); RBC Distribution Width CV 13.2 % (11.6-14.6); RBC Distribution Width SD 43.4 fl (35.1-43.9); Red Blood Count 4.61 M/mm3 (4.2-5.4)
[2025-01-05 16:14] LABS: ALB/GLOB Ratio 1.5 RATIO (0.9-2.4); AST(SGOT) 16 U/L (<=31); Alanine Aminotransfer ALT/SGPT 12 U/L (<=34); Albumin, Serum 4.1 g/dL (3.5-5.0); Alkaline Phosphatase 81 U/L (35-104); Anion Gap 12 (5-15); BUN 16 mg/dL (4-19); BUN/Creat Ratio 22.3 RATIO (10-20); Carbon Dioxide 25.9 mmol/L (21.0-32.0); Chloride 103 mmol/L (98-108); Creatinine, Serum 0.74 mg/dL (0.70-1.20); EST Glomerular Filtration Rate 94 (>60); Globulin 2.7 g/dL (2.2-4.2); Glucose 94 mg/dL (70-99); Potassium 3.7 mmol/L (3.3-5.1); Protein, Total 6.8 g/dL (5.9-8.4); Sodium Level 140 mmol/L (133-145); Total Bilirubin < 0.15 mg/dL (0.00-1.30)
== END | disposition home or self-care (01) ==
LOC: MTLAB 13:10
PROVIDERS: PCP Nurse Practitioner Family; Referring Provider Nurse Practitioner Family; Visit Provider Nurse Practitioner Family
DX: I10 Essential (primary) hypertension (principal)
CPT/HCPCS: 36415; 80053; 85025

== ENCOUNTER 2025-01-14 05:56 | Day surgery (SDC) | payer BC, SELFPAY ==
[2025-01-14] VITALS (8 sets, daily range): BP systolic 108–125; BP diastolic 72–86; PULSE 76–100; RESP 16–20; TEMP 36.2–36.6; O2SAT 95–100; BMI 28.9
--- NOTE | 2025-01-14 06:30 | RAD_ITS ---
EXAM: XR Right Foot, 2 Views CLINICAL INDICATION: PLANTAR FASCIOTOMY AND RESECTION OF RIGHT FOOT TECHNIQUE: Frontal and lateral views of the right foot. COMPARISON: No relevant prior studies available. FINDINGS: BONES/JOINTS: Unremarkable. No acute fracture. No dislocation. SOFT TISSUES: Unremarkable. No radiopaque foreign body. OTHER FINDINGS: Fluoroscopic images were used intraoperatively. Total 2 fluoroscopic image were obtained. Total fluoroscopy time was 33 seconds. Total radiation dose was 0.2623 mGy. RAD/Foot 2 Views IMPRESSION: Fluoroscopic guidance was used intraoperatively. Please refer to operative not e for further details. Reading Location: [facility]
[2025-01-14] MEDS: Lactated Ringers 1,000 ML 15 ML IV (06:36)
--- NOTE | 2025-01-14 06:53 | PRE.ANES_ITS ---
ASA Classification* ASA Classification ASA Classification: 3 Assessment & Plan Anesthesia* Anesthesia Assessment Anesthesia Assessment: Discussed sedation and/or anesthesia options, risks, benefits, and alternatives with patient/parents/legal guardian/POA. Questions invited. The patient/parents/legal guardian/POA seems to understand and agrees to proceed with anesthesia plan. Reviewed the physical assessment, medical history, allergy history and patient home medications list prior to surgery/procedure/anesthetic and documented any changes. Performed airway and anesthesia risk assessments. Anesthesia Type Anesthesia Type: MAC Anesthesia Focused Assessment* Temperature: 97.5 F Pulse Rate: 100 Blood Pressure: 125/86 Respiratory Rate: 16 Pulse Ox: 95 Airway Assessment Mouth opens: >3 cm Mallampati Score: II Focused Labs Anesthesia Preop lab: CBC WBC 10.0 K/mm3 (4.4-11.0) 01/05/25 13:12 01/05/25 RBC 4.61 M/mm3 (4.2-5.4) 01/05/25 13:12 01/05/25 Hgb 14.0 g/dL (12.0-15.0) 01/05/25 13:12 01/05/25 Hct 41.7 % (37-47) 01/05/25 13:12 01/05/25 Plt Count 360 K/mm3 (150-450) 01/05/25 13:12 01/05/25 CHEMISTRY Potassium 3.7 mmol/L (3.3-5.1) 01/05/25 13:12 01/05/25 Sodium 140 mmol/L (133-145) 01/05/25 13:12 01/05/25 Magnesium 2.1 mg/dL (1.6-2.6) 05/31/24 09:45 05/31/24 BUN 16 mg/dL (4-19) 01/05/25 13:12 01/05/25 Creatinine 0.74 mg/dL (0.70-1.20) 01/05/25 13:12 01/05/25 Glucose 94 mg/dL (70-99) 01/05/25 13:12 01/05/25 TSH 1.570 uIU/mL (0.358-3.740) 05/31/24 09:45 05/04 COAG Pre-Assessment Diagnosis/Proposed Procedure Planned Operative Procedure(s): RIGHT PLANTAR FASCIOTOMY Anesthesia History Anesthesia History - software computer specialist: Anesthesia History - software computer specialist Hx Hospitalization No 01/06/25 10:16 Any Problems With Anesthesia No 01/06/25 10:16 Cholinesterase deficiency No 01/06/25 10:16 You/Your Family Experience No 01/06/25 10:16 fever (hyperthermia) with Relationship Recent Exposure to Contagious No 01/14/25 06:32 Disease Does patient have nerve No 01/06/25 10:16 stimulator Patient instructed to have device shut off --Does patient have Pacemaker No 01/14/25 06:33 or ICD? When Was Last Pacemaker Check QUESTION #4 FULL TEXT: You/Your Family Experience fever (hyperthermia) with Anesthesia Last Oral Intake Last Oral intake: Last Oral Intake NPO since 00:00 01/14/25 06:33 Meds taken in AM with sips of Yes 01/14/25 06:33 water? Meds patient instructed to levothyroxine 01/14/25 06:33 take am of surgery PONV PONV - software computer specialist: PONV - software computer specialist Female Yes 01/06/25 10:16 HX of Motion Sickness No 01/06/25 10:16 HX of N/V After Surgery No 01/06/25 10:16 Non-Smoker No 01/06/25 10:16 Duration of Surgery greater Yes 01/06/25 10:16 than 60 minutes Number of Risk Factors 2 01/06/25 10:16 PONV Score Moderate Risk 01/06/25 10:16 Height & Weight Height & Weight: Anesthesia: Height & Weight Height 5 ft 3 in 01/14/25 06:33 Weight: 74 kg 01/14/25 06:33 Body Mass Index (BMI) 28.9 01/14/25 06:33 Respiratory Assessment Respiratory Assessment - software computer specialist: Respiratory Tract Infection Hx - software computer specialist Hx Respiratory Tract Infection No 01/06/25 10:16 STOP Sleep Apnea STOP Sleep Apnea - software computer specialist: STOP Sleep Apnea - software computer specialist Hx Hypertension Yes: CONTROLLED WITH MED 01/06/25 10:16 Hx Sleep Apnea No 01/06/25 10:16 CPAP BIPAP Do you snore loudly (louder Yes 01/06/25 10:16 than talking or can be heard Do you often feel tired/ No 01/06/25 10:16 fatigued/ sleepy during daytime? Has anyone observed you stop No 01/06/25 10:16 breathing during sleep? STOP Results Positive 01/06/25 10:16 QUESTION #5 FULL TEXT : Do you snore loudly (louder than talking or can be heard through closed doors)? Tobacco Use History Tobacco Use History - software computer specialist: Tobacco Use History - software computer specialist Tobacco Use Smoking Status Current every day smoker 01/06/25 10:16 Hx Tobacco Use Yes 01/06/25 10:16 Years Smoking Packs Smoked per Day Smoking Cessation Date was within the last 15 years Hx Smoking Cessation Date Hx Smoking Cessation Counseling Hematologic Medial History Hematologic Hx - software computer specialist: Hematologic Medical Hx - jigman Hx of Blood Transfusion No 01/06/25 10:16 Hx of Transfusion in last 3 No 01/06/25 10:16 Months Date of Last Transfusion (if within last 3 months) Ever experience any problems No 01/06/25 10:16 with transfusion(s)? Specify any problems Hx of Preganancy in last 3 No 01/06/25 10:16 Months Nurse Filling Out Transfusion DSCHRIBER 01/06/25 10:16 & Questions: Date: 01/06/25 01/06/25 10:16 Time: 10:17 01/06/25 10:16 Patient unable to answer at this time (ie. confused, unrespo /Reproduction History /Reproductive History - software computer specialist: /Reproductive Hx- software computer specialist Hx Now No 01/06/25 10:16 Gestational Age (in weeks): EDC: Hx Hx Para Hx Section SAB No 01/06/25 10:16 Active Medications Active Medications: Current Medications Generic Name Dose Route Start Last Admin Trade Name Freq PRN Reason Stop Dose Admin Cefazolin Sodium 2 gm/ Sodium 110 mls @ 150 mls/hr 01/14/25 07:30 Chloride IV 01/14/25 08:13 INTRAOP ONE Lactated Ringer's 1,000 mls @ 15 mls/hr 01/14/25 06:15 01/14/25 06:36 IV 15 mls/hr .Q48H JHONATHAN Administration PFSH Medical History Wears glasses Wears dentures Post-menopausal Alcohol use Restless legs Migraine headache Shortness of breath on exertion Smoker History of pain when walking Hypertension Vertigo Hypothyroidism history of leg surgery Home Medications ?Medication ?Instructions ?Recorded ?Last Taken ?Type hydrochlorothiazide 25 mg tablet 25 mg PO DAILY 01/13/25 History levothyroxine 100 mcg tablet 100 mcg PO DAILY 05/31/24 01/14/25 History pramipexole 0.125 mg tablet 0.125 mg PO QHS 05/31/24 0 01/13/25 History Allergy/AdvReac Type Severity Reaction Status Date / Time No Known Allergies Allergy Verified 01/06/25 10:13 Social History Smoking Status: Current every day smoker tobacco type: cigarettes alcohol intake: current details: Social drinker Review of Systems (Anesthesia) ROS Narrative System reviewed and no additional complaints, except as documented.
--- NOTE | 2025-01-14 07:25 | PCM.DC ---
Discharge Instructions Diet Discharge Diet: Light diet - advance as tolerated DC O2, CPAP, BIPAP needs Home O2 Discharge instructions: No Dressing / Incision Discharge Activity: May Not Drive Weight Bearing Status: No weight bearing (No weight on right foot) Keep extremity elevated above heart level: Operative Extremity (Keep right foot elevated with pillows for at 50 minutes of every hour) Dressing / Incision Call your doctor if your incision/area has: Continuous Slow Oozing, Sudden Increased Bleeding and Increased Redness Call your doctor if you observe: Fever of 101 or Higher, Shortness of breath, Chest pain, Increased palpitations (irregular heartbeat), Calf discomfort and Uncontrolled pain Change Dressing in: do not change dressing Remove Dressing in: do not remove dressing Cleanse incision/area with: Keep Dressing Clean & Dry Follow Up Care Please Follow Up With: Jean Carlos Lloyd DPM When: Next week in office at [facility] Please call Dr. Lloyd at [phone] over weekend if needed or page physician livestock nutrition territory manager through the Physician Registry at [phone] Test Results: Test results from this visit will be discussed in further detail at your follow-up appointment, if applicable. Discharge Plan Admission Attending Provider: Jean Carlos Lloyd Primary Care Provider: Jaelyn Rhodes Instructions Print Language: Setswana Discharge Orders/Prescriptions Prescriptions: New hydrocodone-acetaminophen 5-325 mg tablet 1 tab PO Q6H PRN (Reason: pain) 3 Days Qty: 14 0RF No Action levothyroxine 100 mcg tablet 100 mcg PO DAILY pramipexole 0.125 mg tablet 0.125 mg PO QHS hydrochlorothiazide 25 mg tablet 25 mg PO DAILY Referrals / Follow Up: Jaelyn Rhodes, JEWELRY DEPARTMENT SUPERVISOR-C [Primary Care Provider] - Disposition Disposition (needs filled in before D/C Order can be placed): Home, Self Care
[2025-01-14] MEDS: Cefazolin 2 GM in 0.9% Normal Saline (100mL Bag) 100 ML IV (07:35)
[2025-01-14] MEDS: Bupivacaine Mpf 0.5% 30 ML VIAL (07:50)
--- NOTE | 2025-01-14 08:20 | PCM.POST.ANE ---
Anesthesia: Postop Eval I Current Vital Signs Temperature: 97.2 F Pulse Rate: 85 Blood Pressure: 113/76 Respiratory Rate: 20 Pulse Ox: 99 Oxygen Delivery Method: Room Air Assessment Airway patent: Yes Spontaneous unlabored respirations: Yes Mental status: Awake and Calm nausea: No Vomiting: No Anesthesia Complication: No Fluid Hydration Crystalloid volume administer (ml): 800 Total IV fluid infused: 800 Progress Note Anesthesia document: Postop Eval 1 completed: Yes
--- NOTE | 2025-01-14 08:25 | OP.PCM_ITS ---
Operative Report (Standard) Operative Information Date of Procedure: 01/14/25 Pre-Operative Diagnosis: Plantar fasciitis, right Infracalcaneal spur, right Post-Operative Diagnosis: Same Surgery/Procedure Performed: Plantar fasciotomy, right Infracalcaneal spur, right contact lens lathe operator: No Type of Anesthesia: Local MAC RN Documented Start/Stop Times: Operation Date: 01/14/25 07:30 Case Time Into Pre-Op 01/14/25 06:02 Out of Pre-Op 01/14/25 07:23 Anesthesia Start 01/14/25 07:29 Into Room 01/14/25 07:29 Procedure Start 01/14/25 07:51 Procedure End 01/14/25 08:10 Anesthesia End 01/14/25 08:15 Out of Room 01/14/25 08:15 Into Recovery 01/14/25 08:19 Out of Recovery 01/14/25 08:37 Into Phase II Recovery 01/14/25 08:39 Out of Phase II 01/14/25 09:24 Procedure Start Time: 07:51 Procedure Stop Time: 08:10 Select all DRAINS/GRAFTS/IMPLANTS that apply: None Estimated Blood Loss: < 1 mL Specimen collected: No Description of surgery: Indications: This is a 59 year-old female who has chronic right plantar heel pain due to plantar fascia and infracalcaneal spur. Xrays and MRI have been obtained pre operatively and reviewed.?She continues to have significant limiting pain despite rest, stretching therapy, corticosteroid injection, and immobilization. She would like to proceed with surgical intervention with procedures as noted above.?The procedures were reviewed with her, as well as the possible benefits vs risks, goals, and estimated recovery.? All the consent forms were reviewed with her and she freely signed them. Operative Procedure: The patient was brought back into the operating room and was in the supine position.?She was carefully placed in the supine position and a well-padded pneumatic tourniquet was applied around her right ankle.? A time- out was performed and the patient was properly identified and surgical plan was confirmed.? The patient did receive prophylactic antibiotics for this procedure, which was 2g of Cefazolin intravenous.? The patient received MAC anesthesia per the anesthesia team.? The skin on the heel was prepped with 70% Isopropyl alcohol and a total of 10mL of 0.5% Bupivacaine was given as a local nerve block to the right heel. The right foot was scrubbed, prepped and draped in the usual aseptic fashion. The right foot was elevated and exsanguinated using an Esmarch bandage and the ankle pneumatic tourniquet was inflated to 250mmHg. Plantar Fasciotomy: Attention was directed to the plantar fascia. A skin incision using a 15 blade was made to the medial hindfoot at the level of the origin of the plantar fascia on the inferior calcaneus. Careful dissection was completed down through the subcutaneous tissue layer. A plane was created superiorly and inferiorly around the plantar fascia. There was significant thickening, tightness, and fibrosis of the plantar fascia consistent with chronic plantar fasciitis. The medial 50% of the plantar fascia was released via a plantar fasciotomy. Resection of infracalcaneal spur: An incision was made overlying the infracalcaneal spur, done using a 15 blade. Careful dissection was completed down to the calcaneal tuberosity. The infracalcaneal spur was identified. It was noted to be very prominent and impinging the soft tissues of the plantar heel. The the prominent bone which included the infracalcaneal spur on the calcaneal tuberosity was resected using a powered rasp, resection was confirmed using intraoperative fluoroscopy. The site was flushed out with copious amounts of normal saline solution. The skin was reapproximated using 3-0 Nylon. An additional 10mL of 0.5% Bupivicaine plain was given as a local nerve block to the right heel to help with post operative pain management. The pneumatic tourniquet was deflated and there was immediate return of warmth and perfusion to the right foot with normal temperature gradient (total tourniquet time was 17 minutes). Capillary fill time was less than three seconds to all toes.? A dressing was applied, which consisted of Betadine-soaked adaptic, 4 x 4 gauze, Kerlix, and [place] bandage. Of note all vital structures, including all vital neurovascular structures and tendon structures were properly protected as necessary throughout the above operative procedures. The patient was transported from the operating room to the recovery room with vital signs stable and in good condition.? Postoperative orders were placed.? Post operative instructions have been reviewed with her. No weightbearing right foot. Keep right foot elevated. Keep dressing clean, dry and intact. Prescribed Hydrocodone 5mg/Acetaminophen 325mg PO q 6 hours prn pain for pain control post op. Follow up with me next week, sooner if needed. Post operative foot xrays were obtained of the right foot which confirmed resection of the infracalcaneal spur from the calcaneal tuberosity. Surgical Findings: As noted above Complications Complications: No
--- NOTE | 2025-01-14 08:31 | PCM.DC ---
Discharge Instructions Diet Discharge Diet: Light diet - advance as tolerated DC O2, CPAP, BIPAP needs Home O2 Discharge instructions: No Dressing / Incision Weight Bearing Status: No weight bearing (No weight on right foot) Keep extremity elevated above heart level: Operative Extremity (Keep right foot elevated with pillows for at 50 minutes of every hour) Dressing / Incision Call your doctor if your incision/area has: Continuous Slow Oozing, Sudden Increased Bleeding and Increased Redness Call your doctor if you observe: Fever of 101 or Higher, Shortness of breath, Chest pain, Increased palpitations (irregular heartbeat), Calf discomfort and Uncontrolled pain Cleanse incision/area with: Keep Dressing Clean & Dry Follow Up Care Please Follow Up With: Jean Carlos Lloyd DPM Test Results: Test results from this visit will be discussed in further detail at your follow-up appointment, if applicable. Discharge Plan Admission Attending Provider: Jean Carlos Lloyd Primary Care Provider: Jaelyn Rhodes Instructions Print Language: Vietnamese Discharge Orders/Prescriptions Prescriptions: New hydrocodone-acetaminophen 5-325 mg tablet 1 tab PO Q6H PRN (Reason: pain) 3 Days Qty: 14 0RF Continued levothyroxine 100 mcg tablet 100 mcg PO DAILY pramipexole 0.125 mg tablet 0.125 mg PO QHS hydrochlorothiazide 25 mg tablet 25 mg PO DAILY Referrals / Follow Up: Jaelyn Rhodes NP-C [Primary Care Provider] - Disposition Disposition (needs filled in before D/C Order can be placed): Home, Self Care
--- NOTE | 2025-01-14 08:45 | RAD_ITS ---
EXAM: XR Right Foot Complete, 3 or More Views CLINICAL INDICATION: POST OP TECHNIQUE: Frontal, lateral and oblique views of the right foot. COMPARISON: No relevant prior studies available. FINDINGS: BONES/JOINTS: Mild degenerative changes of the intertarsal joints. No acute fracture. No dislocation. SOFT TISSUES: Soft tissue swelling, predominantly in the plantar calcaneus region, likely from recent procedure. No radiopaque foreign body. RAD/Foot min 3 Views IMPRESSION: 1. Degenerative changes as above. 2. Postoperative changes as above. Reading Location: [facility]
--- NOTE | 2025-01-14 09:02 | POSTOPAN2_ITS ---
Anesthesia Postop Eval I Sum Postop Eval Completion status Anesthesia document: Postop Eval 1 completed: Yes Anesthesia Postop Eval I Summary Anesthesia Postop Eval I Summary: Anesthesia Postop Eval I: Assessment Summary Airway patent Yes 01/14/25 08:21 NEWS [email or web address] Spontaneous unlabored Yes 01/14/25 08:21 NEWS [email or web address] respirations Mental status Awake,Calm 01/14/25 08:21 NEWS [email or web address] nausea No 01/14/25 08:21 NEWS [email or web address] Vomiting No 01/14/25 08:21 NEWS [email or web address] Anesthesia Postop Eval I: Fluid Summary Crystalloid volume administer 800 01/14/25 08:21 NEWS [email or web address] (ml) Colloids volume administered ( ml) Blood Product volume administered (ml) Total IV fluid infused 800 01/14/25 08:21 NEWS [email or web address] Anesthesia Postop Eval I: Summary Notes Anesthesia Complication No 01/14/25 08:21 NEWS [email or web address] Anesthesia Complication Comment: Post-operative progress note Anesthesia: Postop Eval II Evaluation Mental status: Awake Pain Level: 0 nausea: No Vomiting: No
--- NOTE | 2025-01-14 09:02 | PCM.POSTANE2 ---
Anesthesia Postop Eval I Sum Postop Eval Completion status Anesthesia document: Postop Eval 1 completed: Yes Anesthesia Postop Eval I Summary Anesthesia Postop Eval I Summary: Anesthesia Postop Eval I: Assessment Summary Airway patent Yes 01/14/25 08:21 BENCH [email or web address] Spontaneous unlabored Yes 01/14/25 08:21 BENCH [email or web address] [email or web address] respirations Mental status Awake,Calm 01/14/25 08:21 BENCH [email or web address] nausea No 01/14/25 08:21 BENCH [email or web address] [email or web address] Vomiting No 01/14/25 08:21 BENCH [email or web address] Anesthesia Postop Eval I: Fluid Summary Crystalloid volume administer 800 01/14/25 08:21 BENCH [email or web address] (ml) Colloids volume administered ( ml) Blood Product volume administered (ml) Total IV fluid infused 800 01/14/25 08:21 BENCH [email or web address] Anesthesia Postop Eval I: Summary Notes Anesthesia Complication No 01/14/25 08:21 BENCH [email or web address] Anesthesia Complication Comment: Post-operative progress note Anesthesia: Postop Eval II Evaluation Mental status: Awake Pain Level: 0 nausea: No Vomiting: No
== END 2025-01-14 09:25 | disposition home or self-care (01) ==
LOC: SDC 05:56 → AC 05:59
PROVIDERS: PCP Nurse Practitioner Family; Referring Provider Podiatrist; Visit Provider Podiatrist
PROC: (CPT 28119; principal; 2025-01-14 07:15)
DX: M72.2 Plantar fascial fibromatosis (principal); M77.31 Calcaneal spur, right foot; G89.29 Other chronic pain; F17.210 Nicotine dependence, cigarettes, uncomplicated; E03.9 Hypothyroidism, unspecified; Z79.890 Hormone replacement therapy; Z79.899 Other long term (current) drug therapy
CPT/HCPCS: 28119; 73620; 73630; 76000; J2405